=== PATIENT | female | born 1970 | race Caucasian/White ===

== ENCOUNTER 2024-02-26 10:42 | Day surgery (SDC) | payer OTHER, SELFPAY ==
[2024-02-22 12:25] VITALS: BMI 37.5
[2024-02-26 11:12] VITALS: BP 113/66; PULSE 73; RESP 16; TEMP 36.2; O2SAT 100; BMI 37.5
[2024-02-26] MEDS: LACTATED RINGERS 1,000 ML 42 ML IV ×2 (11:24→12:57)
--- NOTE | 2024-02-26 12:15 | PM.PREOP ---
Pre-operative Note Interval Note History & Physical reviewed/Exam performed by Physician: Yes Changes to H&P: No
--- NOTE | 2024-02-26 12:16 | P.OP_ITS ---
Operative Date/Time/Diagnoses Date of procedure: 02/26/24 Time of procedure: 12:16 Pre-op diagnosis: Left painful midfoot arthritis Post-op diagnosis: same Procedure & Clinicians Procedure: Left tarsometatarsal joints 2,3 exostectomy Same procedure as scheduled: Yes Indications: 53 yo female presents for left midfoot exostectomy. Conservative measures have failed to alleviate her pain and she wished to have surgical intervention at this time. We spoke of the risks, potential complications, expected outcomes. Consent reviewed, not contraindications to the procedure at this time. Surgeon: Gege Jasso Click Yes if Unassisted: Yes Anesthesia Type: General Operative Notes Closure Type: primary Specimen(s): none sent Estimated Blood Loss (mL): 10 Blood products transfused: none Tourniquet time (min): 24 Procedure in detail: The patient was brought to the operating room and placed on the operating table in the supine position. The tourniquet was placed about the left thigh. Well- padded, appropriately aligned. After induction of general anesthesia, anesthesia was attained to the left midfoot using the recorded injectables. The left foot and ankle were prepped and draped in the usual aseptic manner. The tourniquet was inflated. Incision was made over the area of highest prominence on the dorsal midfoot. This appeared to correspond with the second to third metatarsal-cuneiform joint. The incision was deepened through subcutaneous tissues being careful to identify and retract all vital neurovascular structures. All bleeders were cauterized and ligated as necessary. A ganglion cyst was immediately seen over the prominent bone and appeared over the deep capsule and extensor muscule here. The ganglion was decompressed as dissection was carried down to the joint complex. Careful retraction of neurovascular structures. Entering dorsally, large spurring was noted and sharply reduced with osteotome and rongeur. This exposed further spurring of the dorsal metatarsal-cuneiform joint, and most prominent spurring was at the second joint. This went somewhat over the third joint. Further reduction of the joints with spur removal and smoothing using a manual rasp. The bone in general in these joints were a little softer consistent with chronic pressure in these areas and degenerative change. The area was irrigated with copious amounts normal sterile saline. The tourniquet was deflated and a prompt hyperemic response was seen to the foot. Deep and subcutaneous closure was closed performed with Vicryl. Nylon suture used to close the skin. The foot was dressed with a lightly compressive sterile dressing and placed in a postoperative shoe and transferred to PACU with vital signs stable. Complications: none Post-operative Disposition: PACU Plan for aftercare: Following a period of postoperative monitoring, the patient will be discharged to home on written and oral postoperative instructions including keeping the dressing dry and intact, no greater than 50% weight to the surgical foot, icing and elevating the foot when seated home. DVT prevention techniques have been reviewed. For the 1st postoperative visit the dressing will be changed and close to the 3rd postoperative week we will likely remove the sutures.
[2024-02-26] MEDS: CEFAZOLIN 2 GM/100 ML PREMIX 100 ML IV (12:57)
--- NOTE | 2024-02-26 13:21 | SUR.OPER ---
Supine on padded OR bed, head on pillow, arms secured on padded arm boards at <90 degrees abduction, legs uncrossed, bump under left hip, safety belt at thigh, tape over blanket over lower legs.
[2024-02-26] MEDS: LIDOCAINE 2% INJ MDV 20ML 5 ML INJ (13:28)
[2024-02-26] MEDS: BUPIVACAINE 0.5% (PF) 30 ML VIAL INJ (13:29)
[2024-02-26 14:11] VITALS: BP 138/79; PULSE 84; RESP 18; TEMP 36.5; O2SAT 97
[2024-02-26 14:16] VITALS: BP 120/79; PULSE 73; RESP 12; O2SAT 96
[2024-02-26 14:21] VITALS: BP 135/85; PULSE 81; RESP 12; O2SAT 96
[2024-02-26 14:26] VITALS: BP 126/73; PULSE 78; RESP 13; TEMP 36.4; O2SAT 94
[2024-02-26 14:30] VITALS: BP 131/74; PULSE 74; RESP 16; O2SAT 97
== END 2024-02-26 14:46 | disposition home or self-care (01) ==
PROVIDERS: PCP Family Medicine; Referring Provider Podiatrist; Visit Provider Podiatrist
PROC: (CPT 28104; principal; 2024-02-26 12:30)
DX: M19.072 Primary osteoarthritis, left ankle and foot (principal); M67.472 Ganglion, left ankle and foot; G47.33 Obstructive sleep apnea (adult) (pediatric)
CPT/HCPCS: 28104; J0690; J1100; J2250; J2405; J2704; J3010